=== PATIENT | female | born 1985 | race Caucasian/White ===

== ENCOUNTER 2016-11-25 18:23 | Emergency (ER) | payer BC ==
[2016-11-25 18:55] VITALS: BP 124/72
--- NOTE | 2016-11-25 19:31 | ER Document Report ---
HPI - HPI Patient complains to provider of: bump on the back of her neck Pain Level: 3 Context: 3 days Patient is a 31-year-old female who presents emergency department complaining of one solitary lymph node in the back of her neck it has been there for 72 hours and only hurts to touch. Patient denies any fever, chills, ear pain, headaches, neck pain, changes in vision, sinus congestion, runny nose, sore throat, difficulty swallowing, cough, difficulty breathing. Otherwise healthy female. Denies any sick contacts - CARDIOVASCULAR Cardiovascular: DENIES: Chest pain - REPRODUCTIVE Reproductive: DENIES: : Past Medical History - Social History Smoking Status: Unknown if Ever Smoked Chew tobacco use (# tins/day): No Frequency of alcohol use: Rare Drug Abuse: None Family History: Reviewed & Not Pertinent - Past Medical History Cardiac Medical History: Reports: Hx Heart Murmur - MVP Denies: Hx Coronary Artery Disease, Hx Heart Attack, Hx Hypertension, Hx Pulmonary Embolism Pulmonary Medical History: Reports: Hx Asthma, Hx Bronchitis, Hx Pneumonia Denies: Hx COPD, Hx Sleep Apnea, Hx Tuberculosis Neurological Medical History: Denies: Hx Cerebrovascular Accident, Hx Seizures Endocrine Medical History: Denies: Hx Hyperthyroidism, Hx Hypothyroidism Renal/ Medical History: Denies: Hx Kidney Stones, Hx Ovarian Cysts, Hx Peritoneal Dialysis, Hx Pelvic Inflammatory Disease Malignancy Medical History: Denies: Hx Breast Cancer, Hx Cervical Cancer, Hx Ovarian Cancer GI Medical History: Reports: Hx Gastroesophageal Reflux Disease. Denies: Hx Hiatal Hernia, Hx Ulcer Musculoskeltal Medical History: Denies Hx Arthritis, Denies Hx Fibromyalgia Psychiatric Medical History: Reports: Hx Depression - anxiety Denies: Hx Bipolar Disorder, Hx Post Traumatic Stress Disorder, Hx Schizophrenia Traumatic Medical History: Reports: Hx Fractures Infectious Medical History: Denies: Hx HIV Past Surgical History: Reports: Hx Section - 2006; 2 D+C 2011 , Hx Dilation and Curettage, Hx Tonsillectomy. Denies: Hx Pacemaker - Immunizations Hx Diphtheria, Pertussis, Tetanus Vaccination: Yes Hx Pneumococcal Vaccination: 10/25/12 Vertical Provider Document - CONSTITUTIONAL Agree With Documented VS: Yes Exam Limitations: No Limitations General Appearance: WD/WN, No Apparent Distress - INFECTION CONTROL TRAVEL OUTSIDE OF THE [place] IN LAST 30 DAYS: No - HEENT HEENT: Atraumatic, Normal ENT Exam, Normocephalic Notes: Uvula midline. Airway patent. No evidence of tonsillar enlargement, peritonsillar abscess, retropharyngeal abscess.. Patient with one isolated inflamed lymph node at the base of the skull on the right side with minimal tenderness, mobile and soft. No evidence of overlying erythema, induration. - NECK Neck: Normal Inspection - RESPIRATORY Respiratory: Breath Sounds Normal, No Respiratory Distress, Chest Non-Tender O2 Sat by Pulse Oximetry: 99 - CARDIOVASCULAR Cardiovascular: Regular Rate, Regular Rhythm, No Murmur Pulses: Normal: Radial, Dorsalis pedis - MUSCULOSKELETAL/EXTREMETIES Musculoskeletal/Extremeties: MAEW, FROM, Non-Tender - NEURO Level of Consciousness: Awake, Alert, Appropriate Motor/Sensory: No Motor Deficit, No Sensory Deficit - DERM Integumentary: Warm, Dry, No Rash Course - Re-evaluation Re-evalutation: 11/25/16 20:00 Patient is a 31-year-old female who is hemodynamic stable, no acute distress and afebrile. No signs of infection. Patient tolerating p.o. without any difficulty. Will discharge home with instruction to follow-up with primary care if symptoms do not improve in 4 weeks. Patient agrees with plan. - Vital Signs Vital signs: Temp Pulse Resp BP Pulse Ox 98.5 F 69 16 124/72 99 11/25/16 18:52 11/25/16 18:52 11/25/16 18:52 11/25/16 18:52 11/25/16 18:52 Discharge - Discharge Clinical Impression: Lymphadenopathy of head and neck Condition: Good Disposition: HOME, SELF-CARE Instructions: Lymphadenopathy ([facility]) Additional Instructions: Please follow-up with your primary care physician if your symptoms persist over the next 4 weeks. Referrals: KIAN TERAN MD [ACTIVE STAFF] - Follow up in 1 month
== END 2016-11-25 20:00 | disposition home or self-care (01) ==
LOC: ER 18:23
DX: R59.0 Localized enlarged lymph nodes (principal); J45.909 Unspecified asthma, uncomplicated
CPT/HCPCS: 99283